=== PATIENT | male | born 1960 | race Caucasian/White ===

== ENCOUNTER 2019-06-14 12:10 | Outpatient (CLI) | payer BC, SELFPAY ==
--- NOTE | ~2019-06-14 | XR_ITS ---
EXAMINATION: XR chest 2V DATE: 06/14/2019 12:34 INDICATION: Mid chest pain. TECHNIQUE: Frontal and lateral views of the chest were obtained. COMPARISON: None. FINDINGS: There is mild atelectasis in left lower lung zone. No pleural effusion or pneumothorax. The heart size is normal. IMPRESSION: 1. Mild atelectasis in left lower lung zone. Reviewed, dictated and finalized at location A. [facility] [employer]
== END 2019-06-14 12:11 | disposition home or self-care (01) ==
PROVIDERS: PCP Internal Medicine; Visit Provider Internal Medicine
DX: R07.9 Chest pain, unspecified (principal); R91.8 Other nonspecific abnormal finding of lung field
CPT/HCPCS: 71046

== ENCOUNTER 2019-06-22 13:07 | Outpatient (CLI) | payer BC, SELFPAY ==
--- NOTE | ~2019-06-22 | CT_ITS ---
EXAMINATION: CT chest wo con EXAM DATE: 06/22/2019 13:35 INDICATION: Left basilar airspace disease on x-ray. TECHNIQUE: Spiral CT of the chest without contrast. Axial, coronal and sagittal images were reviewe d. Coronal maximum intensity pixel images of chest reviewed. The dose-length product (DLP) for this examination was 480.11 mGy-cm. The exposure was tailored according to patient size (auto mA exposur e control), and iterative reconstruction (ASIR) was used as additional dose reduction technique. Anika elation is made to chest x-ray 06/14/2019. FINDINGS: Minimal linear bibasilar atelectasis. No suspicious pulmonary opacities. There are no ple ural or pericardial effusions. Tracheobronchial tree is patent. There is no mediastinal, hilar or axillary lymphadenopathy. There is no pneumothorax. Heart normal in size. There is minimal cor onary arterial calcification, arterial sclerosis. There is thoracic spondylosis without osteoblast ic or osteolytic lesions identified. IMPRESSION: 1. Minimal linear bibasilar atelectasis. Otherwise unremarkable exam. Reviewed, dictated and finalized at location A.
== END 2019-06-22 13:08 | disposition home or self-care (01) ==
PROVIDERS: PCP Internal Medicine; Visit Provider Internal Medicine
DX: J98.11 Atelectasis (principal)
CPT/HCPCS: 71250